=== PATIENT | male | born 1955 | race Asian ===

== ENCOUNTER 2023-01-16 13:37 | Emergency (ER) | payer SELFPAY ==
[~2023-01-16] VITALS: Ht 165.1 cm; Wt 68.2 kg
[2023-01-16 14:11] LABS: BASO % 0.6 % (0.0-2.0); EOS # 0.1 K/mm3 (0.0-0.7); EOS % 1.4 % (0.0-4.0); GRAN # 4.4 K/mm3 (1.4-6.5); GRAN % 67.1 % (42.2-75.2); HEMATOCRIT 42.1 % (42.0-52.0); HEMOGLOBIN 13.9 g/dl (13.5-18.0); LYMPH # 1.4 K/mm3 (1.2-3.4); LYMPH % 21.5 % (20.0-51.0); MEAN CELL VOLUME 92 fl (80.0-100.0); MEAN CORPUSCULAR HEMOGLOBIN 30 pg (27-31); MEAN CORPUSCULAR HGB CONC 33 g/dl (33.0-37.0); MEAN PLATELET VOLUME 9.9 fl (7.4-10.4); MONO # 0.6 K/mm3 (0.1-0.6); MONO % 9.1 % (1.7-9.3); PLATELET COUNT 222 K/mm3 (130-400); REDCELL DISTRIBUTION WIDTH-CV 13.2 % (11.5-14.5)
[2023-01-16 14:19] VITALS: O2SAT 97
[2023-01-16 14:27] LABS: ALANINE AMINOTRANSFERASE 52 U/L (0-55); ALBUMIN 3.8 gm/dL (3.4-4.8); ALKALINE PHOSPHATASE 41 U/L (40-150); ANION GAP 11 mmol/L (7-16); AST,SGOT 35 U/L (5-34); BILIRUBIN,TOTAL 0.5 mg/dL (0.2-1.2); BLOOD UREA NITROGEN 19 mg/dL (8-26); CALCIUM 9.6 mg/dL (8.4-10.2); CARBON DIOXIDE 23 mmol/L (23-31); CHLORIDE 106 mmol/L (98-107); CREATININE, serum 0.94 mg/dL (0.72-1.25); GLUCOSE 130 mg/dL (70-99); POTASSIUM 3.9 mmol/L (3.5-4.5); SODIUM 140 mmol/L (136-145); TOTAL PROTEIN 7.5 gm/dL (6.2-8.1)
[2023-01-16 14:35] LABS: TROPONIN-I < 0.010 ng/mL (0.00-0.033)
[2023-01-16] MEDS ORDERED: PEPCID 20MG TAB20 MG PO (15:14)
[2023-01-16] MEDS ORDERED: NORVASC 5MG5 MG/TAB PO (15:14)
[2023-01-16 16:00] VITALS: BP 154/74; PULSE 69; TEMP 98.4
== END 2023-01-16 16:00 | disposition home or self-care (01) ==
LOC: COL.ER 13:37
PROVIDERS: Emergency Medicine
DX: R07.89 Other chest pain (principal); R74.01 Elevation of levels of liver transaminase levels; R03.0 Elevated blood-pressure reading, without diagnosis of hypertension; Z87.891 Personal history of nicotine dependence